=== PATIENT | female | born 1995 | race African-American/Black ===

== ENCOUNTER 2020-10-31 05:10 | Emergency (ER) | payer OTHER ==
[~2020-10-31] VITALS: Ht 149.9 cm; Wt 81.0 kg
[2020-10-31] MEDS ORDERED: IPRATROPIUM BROMIDE (0.02%) 0.5MG/2.5ML NEB HHN STA (06:50)
[2020-10-31] MEDS ORDERED: MORPHINE SULFATE 4 MG/ML CPJ (NOT FOR IM USE) IV STA (06:50)
[2020-10-31] MEDS ORDERED: ALBUTEROL (0.083%) 2.5MG/3ML NEB HHN STA (06:50)
[2020-10-31] MEDS ORDERED: ONDANSETRON HCL 4MG/2ML INJ IV STA (06:50)
[2020-10-31] MEDS ORDERED: METHYLPREDNISOLONE SOD SUCC 125 MG/2 ML VIAL IV STA (06:50)
[2020-10-31] MEDS ORDERED: SODIUM CHLORIDE 0.9% 250 ML IV ONE (07:15)
[2020-10-31 08:19] LABS: BASOPHILS % 0.3 % (0.0-2.0); EOSINOPHILS % 1.1 % (0.0-5.0); HEMATOCRIT. 44.4 % (36.0-48.0); HEMOGLOBIN. 14.3 g/dL (12.0-16.0); LYMPHOCYTES % 7.9 % (20.0-50.0); MEAN CORPUSCULAR HEMOGLOBIN 28.3 pg (28.0-32.0); MEAN PLATELET VOLUME 9.9 fl (7.4-10.4); MONOCYTES % 8.2 % (2.0-8.0); NEUTROPHILS % 82.5 % (40.0-76.0); PLATELET 285 x1000/uL (130-400); RED BLOOD CELL COUNT 5.05 mill/uL (4.2-5.4); RED CELL DISTRIBUTION WIDTH 12.7 % (11.6-14.6)
[2020-10-31 08:28] LABS: CHLORIDE 105 mEq/L (98-107)
[2020-10-31 08:41] LABS: HCG SCREEN NEGATIVE
[2020-10-31 11:07] VITALS: BP 131/81
== END 2020-10-31 11:15 | disposition home or self-care (01) ==
LOC: ER 05:10
DX: J18.9 Pneumonia, unspecified organism (principal); Z03.818 Encounter for observation for suspected exposure to other biological agents ruled out; J45.909 Unspecified asthma, uncomplicated; Z88.6 Allergy status to analgesic agent; Z88.3 Allergy status to other anti-infective agents
CPT/HCPCS: 36415; 71045; 74176; 80053; 83690; 84703; 85025; 93005; 96361; 96374; 96375; 99285; C9803; J2270; J2405; J2930; U0003